=== PATIENT | male | born 1980 | race Caucasian/White ===

== ENCOUNTER 2020-04-10 09:41 | Outpatient (CLI) | payer MEDICAID, SELFPAY ==
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
--- NOTE | 2020-04-10 14:43 | DI.RAD_ITS ---
EXAM: XR THORACIC SPINE COMPLETE CLINICAL HISTORY: THORACIC BACK PAIN, M54.6 TECHNIQUE: COMPARISON: CR XR LUMBAR SPINE COMPLETE from 04/10/2020 FINDINGS: Three views of the thoracic spine and 6 views of the lumbar spine were obtained. There is a slight b iconvex thoracolumbar scoliosis. The intervertebral disc spaces appear fairly well preserved through out the thoracic and lumbar regions. Mild hypertrophic spurring of the vertebral endplates noted par ticularly in the lumbar region. Mild facet hypertrophic changes also noted in the lumbar region. No evidence of compression fracture. No gross erosive or destructive lesion. Oblique views of the lumbar spine show no evidence of spondylolysis or spondylolisthesis. The SI kami nts appear intact bilaterally. IMPRESSION: Mild degenerative changes of thoracic and lumbar spine. RADIATION DOSE DELIVERED: Total DLP
== END 2020-04-10 10:01 ==
PROVIDERS: PCP Family Medicine; Visit Provider Physician Assistant Medical
DX: M47.814 Spondylosis without myelopathy or radiculopathy, thoracic region (principal); M47.816 Spondylosis without myelopathy or radiculopathy, lumbar region; M25.562 Pain in left knee
CPT/HCPCS: 72072; 72110; 73564

== ENCOUNTER 2020-05-03 02:13 | Outpatient (CLI) | payer MEDICAID, SELFPAY ==
[2020-05-03 12:48] LABS: HCT 47.7 % (40.0-50.0); HGB 15.6 g/dL (13.5-17.5); MCH 27.5 pg (27.0-33.0); MCHC 32.7 % (32.0-36.0); MCV 84.1 fL (80-95); MPV 9.6 fL (8.0-11.0); Platelet Count 309 10^3/uL (130-400); RBC 5.67 10^6/uL (4.36-5.78); RDW 14.6 % (11.8-14.1); RDW-SD 44.8 fL; WBC 8.66 10^3/uL (4.4-10.8)
[2020-05-03 13:41] LABS: ESR 3 mm/hr (0-15)
[2020-05-03 13:49] LABS: C-Reactive Protein 0.13 mg/dL (0.0-0.3)
[2020-05-05 17:01] LABS: HLA-B27 Result Negative
[2020-05-18 12:43] LABS: ANA Interpretation 0.2 (Negative)
== END 2020-05-03 02:33 ==
PROVIDERS: PCP Family Medicine; Visit Provider Orthopaedic Surgery
DX: M45.5 Ankylosing spondylitis of thoracolumbar region (principal)
CPT/HCPCS: 36415; 85027; 85652; 86812; 86038; 86140

== ENCOUNTER 2020-07-14 09:53 | Outpatient (CLI) | payer MEDICAID, SELFPAY ==
--- NOTE | 2020-07-14 14:01 | DI.RAD_ITS ---
EXAM: XR CERVICAL SPINE COMP 4-5V CLINICAL HISTORY: PAIN CERVICAL SPINE, M54.2. TECHNIQUE: 2D digital imaging was performed. COMPARISON: CR XR THORACIC SPINE COMPLETE from 04/10/2020 FINDINGS: No evidence of fracture or listhesis nor offset of the spinal laminar line. There is disc space narrowing and anterior osteophytes at C6-7 level. There are no prominent Luschka joint osteophytes. No cervical ribs. Normal disc height at the other levels including C5-6. Bone density normal. No osseous lesions. IMPRESSION: Degenerative disc space narrowing C6-7 level. DATA REPOSITORY: RADIATION DOSE DELIVERED:
== END 2020-07-14 10:13 ==
PROVIDERS: PCP Family Medicine; Visit Provider Family Medicine
DX: M47.812 Spondylosis without myelopathy or radiculopathy, cervical region (principal)
CPT/HCPCS: 72050

== ENCOUNTER 2025-03-28 19:41 | Emergency (ER) | payer MEDICAID, SELFPAY ==
[2025-03-28 19:44] VITALS: BP 138/66; PULSE 111; RESP 16; TEMP 37.2; O2SAT 97
[2025-03-28 19:46] VITALS: BP 138/66; PULSE 111; RESP 16; TEMP 37.2; O2SAT 97
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
[2025-03-28] MEDS: Cephalexin 500 MG CAP PO (20:22)
[2025-03-28] MEDS: Acetaminophen 325 MG TAB 650 MG PO (20:22)
[2025-03-28] MEDS: Cephalexin 500 MG CAP, 4 CAPS/BTL PO (20:22)
[2025-03-28] MEDS: Mupirocin 2% Oint. 22 GM TUBE TP (20:23)
[2025-03-28] MEDS: Ketorolac 30 MG/ML VIAL IM (20:23)
== END 2025-03-28 20:34 | disposition home or self-care (01) ==
LOC: ER 20:36
PROVIDERS: Emergency Provider Nurse Practitioner Family; PCP Student in an Organized Health Care Education/Training Program
DX: L03.211 Cellulitis of face (principal); L01.09 Other impetigo
CPT/HCPCS: 99283; 99284; 96372; J1885

== ENCOUNTER 2025-03-31 13:54 | Emergency (ER) | payer MEDICAID, SELFPAY ==
[2025-03-31 13:56] VITALS: BP 136/95; PULSE 104; RESP 16; O2SAT 95
[2025-03-31 13:59] VITALS: BP 136/95; PULSE 104; RESP 16; TEMP 36.7; O2SAT 95
--- NOTE | 2025-03-31 14:07 | W.ED.GENAD ---
Discharge Plan Disposition Patient Disposition: Home Condition: Stable Discharge Details Clinical Impression: Impetigo, Cellulitis Primary Care Provider: Maribel Arriaga ED Provider: Dom Montez Home Meds and New Rx's Prescriptions: New prednisone 20 mg tablet 60 mg PO DAILY 5 Days Qty: 15 0RF sulfamethoxazole-trimethoprim [Bactrim DS] 800-160 mg tablet 1 tab PO BID Qty: 20 0RF amoxicillin-pot clavulanate 875-125 mg tablet 1 tab PO BID Qty: 20 0RF Continued meloxicam 7.5 mg tablet 7.5 mg PO DAILY Patient Comments: TAKE ONE TABLET BY MOUTH TWICE A DAY pregabalin 75 mg capsule 75 mg PO BID Patient Comments: TAKE ONE CAPSULE BY MOUTH TWICE A DAY Discontinued cephalexin 500 mg capsule 500 mg PO QID 6 Days Qty: 24 0RF Discharge Instructions Additional Instructions: You may stop taking the cephalexin and start taking the new antibiotics I prescribed you. Continue to use the mupirocin topical ointment. Continue to do warm compresses frequently. Follow-up with your primary care provider as scheduled. If you feel more ill or have new symptoms such as high fevers or severe worsening pain return to the emergency department for reevaluation. HPI General Mode of arrival: ambulatory. Date/Time Provider Initiated Documentation: 03/31/25 13:55. Limitations to Documentation: no limitations. Information obtained by: patient. History of Present Illness 45 year old M presents to the emergency department with the chief complaint of lip swelling and discharge , described as moderate, Quality is described as aching, Patient started experiencing this day(s) (4) and it has been constant. No relieving factors improve symptom(s), No exacerbating factors reported . Patient notes no other symptoms.; denies fever/chills. Patient did receive the following treatments prior to arrival, none Related Data Home Medications ?Medication ?Instructions ?Recorded ?Confirmed meloxicam 7.5 mg tablet 7.5 mg PO DAILY 03/28/25 03/31/25 pregabalin 75 mg capsule 75 mg PO BID 03/28/25 03/31/25 amoxicillin 875 mg-potassium 1 tab PO BID #20 tabs 03/31/25 clavulanate 125 mg tablet prednisone 20 mg tablet 60 mg (3 x 20 mg) PO DAILY 5 days 03/31/25 #15 tabs sulfamethoxazole 800 1 tab PO BID #20 tabs 03/31/25 mg-trimethoprim 160 mg tablet (Bactrim DS) Previous Rx's ?Medication ?Instructions ?Recorded amoxicillin 875 mg-potassium 1 tab PO BID #20 tabs 03/31/25 clavulanate 125 mg tablet prednisone 20 mg tablet 60 mg (3 x 20 mg) PO DAILY 5 days 03/31/25 #15 tabs sulfamethoxazole 800 1 tab PO BID #20 tabs 03/31/25 mg-trimethoprim 160 mg tablet (Bactrim DS) Allergies Allergy/AdvReac Type Severity Reaction Status Date / Time No Known Allergies Allergy Unverified 03/28/25 19:46 General Stated Complaint: Cellulitis KATE: 3 Review of Systems All systems reviewed & are unremarkable except as noted in HPI and below Constitutional Constitutional: Denies chills, Denies fever(s) and Denies weakness Cardiovascular Cardiovascular: Denies chest pain and Denies dyspnea Respiratory Respiratory: Denies cough and Denies dyspnea Gastrointestinal Gastrointestinal: Denies vomiting Neurologic Neurologic: Denies weakness Endocrine Endocrine: Denies cold intolerance Exam Const General: no acute distress Orientation: alert [facility] Head: normal to inspection Ears: external ears normal General nose exam: septum normal and no nasal discharge Mouth: moist mucous membranes and lip abnormal Eyes General: appearance normal, both eyes and all related structures Neck Neck: normal visual inspection Resp Effort & Inspection: normal respiratory effort and able to speak in complete sentences Cardio Rate: regular rate Skin General skin exam: no rashes or lesions noted Neuro General: patient alert Extrem General: normal to inspection Psych Mental Status: mental status grossly normal Course Vital Signs Vital signs: Vital Signs Pulse 104 H 03/31/25 13:56 Respiratory Rate 03/31/25 13:56 Blood Pressure 136/95 H 03/31/25 13:56 Pulse Oximetry 95 03/31/25 13:56 Temperature 36.7 C 03/31/25 13:59 Temperature Source Oral 03/31/25 13:59 Pulse 104 H 03/31/25 13:59 Respiratory Rate 16 03/31/25 13:59 Blood Pressure 136/95 H 03/31/25 13:59 Blood Pressure Position Sitting 03/31/25 13:59 Pulse Oximetry 95 03/31/25 13:59 Oxygen Delivery Method Room Air 03/31/25 13:56 Oxygen Flow Rate 0 03/31/25 13:56 Pain Level 10 03/31/25 13:59 Medical Decision Making 45-year-old male comes in for recheck for his upper lip. He cut it shaving a few days ago was seen 3 days ago in the ER and placed on cephalexin and mupirocin cream. He says despite that he is having drainage from the inner upper lip goldstein and the swelling more. Denies any fevers or systemic symptoms. He has some erythematous lesions just below the nose consistent with likely impetigo. He has no swelling of the nose and periorbital swelling. No submandibular swelling. Left upper lip is swollen and on the inner surface he does have a central wound that is draining. Material and squeeze. I suspect he had cellulitis and abscess that is not draining. She will require his changing of his antibiotics at this time and I will place him on Bactrim and Augmentin. I am also placing orders for a course of prednisone to hopefully help with the swelling. He will follow-up with his PCP and return precautions given. He has no crepitus or diffuse facial swelling so I do not feel imaging or lab work at this time is indicated. Differential Diagnosis Differential Diagnosis: impetigo,cellulitis PFSH All Active Problems (Updated 03/31/25 @ 14:08 by Dom Montez MD) Cellulitis (Acute) Impetigo (Acute) Back pain (Acute) Social History Smoking/Tobacco Use Status: Current every day Smoking risk assessment performed?: Yes Drug use: Never Current gender identity: male Do you feel safe at home: Yes Do you feel safe in your relationship?: Yes
== END 2025-03-31 14:27 | disposition home or self-care (01) ==
PROVIDERS: Emergency Provider Emergency Medicine; PCP Student in an Organized Health Care Education/Training Program
DX: L03.211 Cellulitis of face (principal); L01.00 Impetigo, unspecified
CPT/HCPCS: 99283; 99284